=== PATIENT | female | born 1970 | race Asian ===

== ENCOUNTER 2022-01-10 04:26 | Day surgery (SDC) | payer BC ==
[2022-01-04 15:07] VITALS: BMI 26.2
[2022-01-10] MEDS ORDERED: ceFAZolin 2 GRAM PREMIX BAG IVPB ONE (07:00)
[2022-01-10 07:17] VITALS: BP 176/96; PULSE 88; TEMP 97.5
[2022-01-10] MEDS ORDERED: CEFAZOLIN 2 GM in DEXTROSE 5%-WATER 100 ML IVPB ONE (08:00)
[2022-01-10] MEDS ORDERED: LIDOCAINE 1%/EPI 1:100000 (20 ML MULTI DOSE VIAL) IJ ONE (08:10)
[2022-01-10] MEDS ORDERED: VANCOMYCIN 1 GM in D5W (PRE-DOCKED) 1,000 MG/250 ML IVPB ONE (08:11)
[2022-01-10] MEDS ORDERED: ceFAZolin SODIUM 1 GM VIAL IVPB ONE (08:11)
[2022-01-10] MEDS ORDERED: HYDROGEN PEROXIDE 473 ML PO ONE (08:13)
[2022-01-10] MEDS ORDERED: THROMBIN (BOVINE) 5,000 UNIT VIAL TP ONE (08:13)
[2022-01-10] MEDS ORDERED: GENTAMICIN SO4 80 MG/2 ML VIAL IVPB ONE (08:15)
[2022-01-10] MEDS ORDERED: BUPIVACAINE LIPOSOME/PF (EXPAREL) 266 MG/20 ML VIAL NR ONE (08:17)
[2022-01-10] MEDS ORDERED: BUPIVACAINE HCL/PF 0.5% (5MG/ML) 10 ML VIAL IJ ONE (08:18)
== END 2022-01-10 10:35 | disposition home or self-care (01) ==
LOC: JASU-SURG 04:26 → UNDOADMIN 04:26 → J2C 04:26 → JASU-SURG 10:35 → UNDODISIN 10:35 → EDSTATUS 11:00 → JASU-SURG 11:14
PROVIDERS: ATTEND Neurological Surgery
DX: Z53.8 Procedure and treatment not carried out for other reasons (principal)
CPT/HCPCS: 76000-TC-FY; 81025; 82962; 93005; 93010

== ENCOUNTER 2022-01-11 04:08 | Inpatient (IN) | payer BC ==
[2022-01-10 16:40] VITALS: BMI 26.2
[2022-01-11] MEDS ORDERED: LIDOCAINE 1%/EPI 1:100000 (20 ML MULTI DOSE VIAL) ONE ×2 (07:10→09:00)
[2022-01-11] MEDS ORDERED: THROMBIN (BOVINE) 20,000 UNIT VIAL TP ONE ×3 (07:11→11:30)
[2022-01-11] MEDS ORDERED: BUPIVACAINE HCL/PF 0.5% (5MG/ML) 10 ML VIAL ONE (07:12)
[2022-01-11] MEDS ORDERED: GENTAMICIN SO4 80 MG/2 ML VIAL ONE ×2 (07:24→07:47)
[2022-01-11] MEDS ORDERED: ceFAZolin SODIUM 1 GM VIAL IVPB ONE ×2 (07:39→08:40)
[2022-01-11] MEDS ORDERED: LIDOCAINE 1%/EPI 1:100000 (20 ML MULTI DOSE VIAL) IJ ONE ×2 (07:39→08:51)
[2022-01-11] MEDS ORDERED: VANCOMYCIN 1 GM in D5W (PRE-DOCKED) 1,000 MG/250 ML IVPB ONE ×2 (07:39→08:42)
[2022-01-11] MEDS ORDERED: GENTAMICIN SO4 80 MG/2 ML VIAL IVPB ONE ×2 (07:40→10:00)
[2022-01-11] MEDS ORDERED: HYDROGEN PEROXIDE 473 ML PO ONE ×2 (07:41→10:00)
[2022-01-11] MEDS ORDERED: THROMBIN (BOVINE) 5,000 UNIT VIAL TP ONE ×4 (07:41→11:12)
[2022-01-11] MEDS ORDERED: BUPIVACAINE LIPOSOME/PF (EXPAREL) 266 MG/20 ML VIAL NR ONE (07:42)
[2022-01-11] MEDS ORDERED: BUPIVACAINE HCL/PF 0.5% (5MG/ML) 10 ML VIAL IJ ONE (07:42)
[2022-01-11] MEDS ORDERED: BUPIVACAINE LIPOSOME/PF (EXPAREL) 266 MG/20 ML VIAL ONE (08:05)
[2022-01-11] MEDS ORDERED: BACITRACIN 15 GM TUBE TOPICAL OINTMENT ONE (09:00)
[2022-01-11] MEDS ORDERED: ALBUMIN HUMAN 5% 250 ML IV SOLUTION IV ONE ×2 (11:02→11:07)
[2022-01-11] MEDS ORDERED: PROPOFOL 1,000,000 MCG/100 ML VIAL ONE (13:29)
[2022-01-11] MEDS ORDERED: VASOPRESSIN 20 UNITS/ML VIAL IV ONE (13:47)
[2022-01-11] MEDS ORDERED: ONDANSETRON 4 MG/2 ML VIAL IVPUSH PRN (14:11)
[2022-01-11] MEDS ORDERED: MICROFIBRILLAR COLLAGEN (AVITENE) 1 EACH POWD.PACK TP SCH (14:15)
[2022-01-11] MEDS ORDERED: PROPOFOL 1,000,000 MCG/100 ML VIAL IVPB SCH (14:15)
[2022-01-11] MEDS ORDERED: LACTATED RINGERS SOLUTION 1,000 ML IV SCH (14:15)
[2022-01-11] MEDS ORDERED: diphenhydrAMINE HCL 25 MG CAPSULE (FP) PO PRN (14:27)
[2022-01-11] MEDS ORDERED: LACTATED RINGERS SOLUTION 1,000 ML/1,000 ML INFUS.BAG IV SCH (14:30)
[2022-01-11] MEDS ORDERED: CALCIUM GLUCONATE 10% - 1,000 MG/10 ML VIAL IVPB ONE ×2 (14:32→20:52)
[2022-01-11 14:40] LABS: BASO % 0.2 % (0-2.0); EOS % 0.2 % (0-4.5); HEMATOCRIT 38.5 % (32.4-45.2); HEMOGLOBIN 13.1 GM/dL (10.7-15.3); LYMPH % 12.3 % (8-40); MCH 29.9 pg (25.7-33.7); MCHC 33.9 g/dl (32.0-36.0); MEAN CELL VOLUME 88.1 fl (80-96); MEAN PLT VOLUME 7.4 fl (7.5-11.1); MONO % 6.2 % (3.8-10.2); NEUT % 81.1 % (42.8-82.8); PLATELET COUNT 149 10^3/uL (134-434); RBC 4.37 M/mm3 (3.60-5.2); RDW 15.2 % (11.6-15.6); WHITE BLOOD COUNT 10.5 K/mm3 (4.0-10.0)
[2022-01-11 14:50] LABS: ACTIVATED PTT 27.4 SECONDS (25.2-36.5); INR 1.2 (0.83-1.09); PROTHROMBIN TIME (PATIENT) 13.8 SEC (9.7-13.0)
[2022-01-11] MEDS ORDERED: FENTANYL NS IVPB 500 MCG/100 ML BAG IVPB ONE (15:07)
[2022-01-11 15:11] LABS: BLOOD UREA NITROGEN 8.7 mg/dL (7-18)
[2022-01-11 15:14] LABS: CREATININE 0.5 mg/dL (0.55-1.3)
[2022-01-11 15:16] LABS: BILIRUBIN,TOTAL 0.9 mg/dL (0.2-1)
[2022-01-11 15:18] LABS: ALBUMIN 2.6 g/dl (3.4-5.0); CALCIUM 7.2 mg/dL (8.5-10.1); TOT PROT 4.4 g/dl (6.4-8.2)
[2022-01-11] MEDS ORDERED: [UNRECOGNIZED DRUG - OTHER] IVPB ONE (15:20)
[2022-01-11] MEDS ORDERED: NS IVPB ONE (15:20)
[2022-01-11] MEDS ORDERED: NOREPINEPHRINE IVPB ONE (15:20)
[2022-01-11] MEDS ORDERED: PREMIXED IVPB ONE (15:20)
[2022-01-11] MEDS ORDERED: NOREPINEPHRINE NS PREMIX 16,000 MCG/500 ML BAG IVPB SCH (15:30)
[2022-01-11] MEDS ORDERED: SODIUM CHLORIDE 1,000 ML IV STA (16:02)
[2022-01-11] MEDS ORDERED: MIDAZOLAM HCL 2 MG/2 ML SINGLE DOSE VIAL IVPUSH ONE ×2 (16:46→16:56)
[2022-01-11] MEDS ORDERED: MIDAZOLAM HCL 2 MG/2 ML SINGLE DOSE VIAL ONE (16:57)
[2022-01-11] MEDS: HEPARIN NA (PORCINE) 5,000 UNITS/ML 1ML VIAL SQ SCH ×2 (17:16→22:48)
[2022-01-11] MEDS ORDERED: DEXMEDETOMIDINE IN 0.9 % NACL 400 MCG/100 ML VIAL IVPB SCH (18:00)
[2022-01-11] MEDS ORDERED: ceFAZolin SODIUM 1 GM VIAL ONE (18:20)
[2022-01-11] MEDS: SODIUM CHLORIDE 1,000 ML IV SCH (18:21)
[2022-01-11] MEDS ORDERED: DEXTROSE 5%-WATER - 50 ML IVPB ONE (18:21)
[2022-01-11] MEDS: CEFAZOLIN 1 GM in DEXTROSE 5%-WATER - 50 ML IVPB SCH (18:35)
[2022-01-11] MEDS: VASOPRESSIN 40 UNITS/100 ML BAG IV SCH (19:00)
[2022-01-11] MEDS: FENTANYL NS IVPB 500 MCG/100 ML BAG IVPB SCH ×2 (19:00→22:03)
[2022-01-11 22:10] LABS: HEMATOCRIT 37.9 % (32.4-45.2); HEMOGLOBIN 12.8 GM/dL (10.7-15.3); MCH 29.1 pg (25.7-33.7); MCHC 33.7 g/dl (32.0-36.0); MEAN CELL VOLUME 86.3 fl (80-96); MEAN PLT VOLUME 8.1 fl (7.5-11.1); PLATELET COUNT 171 10^3/uL (134-434); RBC 4.39 M/mm3 (3.60-5.2); RDW 14.8 % (11.6-15.6); WHITE BLOOD COUNT 15.4 K/mm3 (4.0-10.0)
[2022-01-11] MEDS: DOCUSATE SODIUM 100 MG CAPSULE (FP) PO SCH (22:48)
[2022-01-12] MEDS ORDERED: ceFAZolin SODIUM 1 GM VIAL ONE ×3 (00:38→14:49)
[2022-01-12] MEDS ORDERED: DEXTROSE 5%-WATER - 50 ML IVPB ONE ×3 (00:38→14:49)
[2022-01-12] MEDS: CEFAZOLIN 1 GM in DEXTROSE 5%-WATER - 50 ML IVPB SCH ×2 (01:00→09:02)
[2022-01-12] MEDS ORDERED: SODIUM CHLORIDE 0.9% 500 ML INFUS.BAG IV ONE (01:27)
[2022-01-12] MEDS: FENTANYL NS IVPB 500 MCG/100 ML BAG IVPB SCH ×2 (03:40→08:04)
[2022-01-12] MEDS: VASOPRESSIN 40 UNITS/100 ML BAG IV SCH ×2 (04:55→15:30)
[2022-01-12] MEDS: HEPARIN NA (PORCINE) 5,000 UNITS/ML 1ML VIAL SQ SCH ×2 (05:07→14:36)
[2022-01-12] MEDS: DOCUSATE SODIUM 100 MG CAPSULE (FP) PO SCH ×3 (05:07→21:51)
[2022-01-12 07:22] LABS: HEMATOCRIT 30.3 % (32.4-45.2); HEMOGLOBIN 10.6 GM/dL (10.7-15.3); MCH 29.8 pg (25.7-33.7); MCHC 34.9 g/dl (32.0-36.0); MEAN CELL VOLUME 85.3 fl (80-96); MEAN PLT VOLUME 7.7 fl (7.5-11.1); PLATELET COUNT 117 10^3/uL (134-434); RBC 3.55 M/mm3 (3.60-5.2); RDW 14.8 % (11.6-15.6); WHITE BLOOD COUNT 10.8 K/mm3 (4.0-10.0)
[2022-01-12 07:36] LABS: BLOOD UREA NITROGEN 11.2 mg/dL (7-18)
[2022-01-12 07:39] LABS: CREATININE 0.5 mg/dL (0.55-1.3)
[2022-01-12 08:58] LABS: CALCIUM 7.4 mg/dL (8.5-10.1)
[2022-01-12] MEDS ORDERED: PROPOFOL 1,000,000 MCG/100 ML VIAL IVPB SCH (09:30)
[2022-01-12] MEDS ORDERED: FOLIC ACID 1 MG TABLET (FP) PO SCH (10:00)
[2022-01-12] MEDS ORDERED: FERROUS SO4 325 MG TABLET (FP) PO SCH (10:00)
[2022-01-12] MEDS ORDERED: ONDANSETRON 4 MG/2 ML VIAL IVPUSH ONE (15:00)
[2022-01-12] MEDS: PHENOL 177 ML SPRAY BOTTLE MM PRN (16:12)
[2022-01-12] MEDS: SODIUM CHLORIDE 1,000 ML IV SCH (19:28)
[2022-01-12] MEDS ORDERED: ACETAMINOPHEN 1000 MG/100 ML BAG IVPB ONE (21:38)
[2022-01-12 23:50] LABS: EPI CELLS >36 /uL (0-25.1); HYALINE CASTS 5 /uL (0-3.1); PH,URINE 5.5 (5.0-8.0); URINE APPEARANCE CLEAR; URINE BACTERIA 12 /uL (0-1359); URINE BILIRUBIN NEGATIVE (NEGATIVE); URINE COLOR YELLOW; URINE GLUCOSE (UA) 3+ (NEGATIVE); URINE KETONE 4+ (NEGATIVE); URINE LEUK ESTERASE NEGATIVE (NEGATIVE); URINE NITRITE NEGATIVE (NEGATIVE); URINE PROTEIN TRACE (NEGATIVE); URINE RBC 37 /uL (0-23.9); URINE UROBILINOGEN 0.2 mg/dL (0.2-1.0)
[2022-01-13] MEDS: SODIUM CHLORIDE 1,000 ML IV SCH ×2 (03:34→21:19)
[2022-01-13] MEDS: DOCUSATE SODIUM 100 MG CAPSULE (FP) PO SCH ×3 (05:18→21:17)
[2022-01-13] MEDS: PHENOL 177 ML SPRAY BOTTLE MM PRN (05:19)
[2022-01-13] MEDS ORDERED: THROMBIN (BOVINE) 20,000 UNIT VIAL TP ONE ×2 (07:20→10:03)
[2022-01-13] MEDS ORDERED: GENTAMICIN SO4 80 MG/2 ML VIAL ONE (07:20)
[2022-01-13] MEDS ORDERED: LIDOCAINE 1%/EPI 1:100000 (20 ML MULTI DOSE VIAL) ONE (07:20)
[2022-01-13] MEDS ORDERED: LIDOCAINE 1%/EPI 1:100000 (20 ML MULTI DOSE VIAL) IJ ONE ×2 (07:37→09:35)
[2022-01-13] MEDS ORDERED: VANCOMYCIN 1 GM in D5W (PRE-DOCKED) 1,000 MG/250 ML IVPB ONE ×2 (07:38→08:42)
[2022-01-13] MEDS ORDERED: ceFAZolin SODIUM 1 GM VIAL IVPB ONE ×2 (07:38→08:40)
[2022-01-13] MEDS ORDERED: HYDROGEN PEROXIDE 473 ML PO ONE ×2 (07:39→10:29)
[2022-01-13] MEDS ORDERED: GENTAMICIN SO4 80 MG/2 ML VIAL IVPB ONE ×2 (07:39→10:29)
[2022-01-13] MEDS ORDERED: BUPIVACAINE LIPOSOME/PF (EXPAREL) 266 MG/20 ML VIAL ONE (07:40)
[2022-01-13] MEDS ORDERED: BUPIVACAINE LIPOSOME/PF (EXPAREL) 266 MG/20 ML VIAL NR ONE ×2 (07:41→11:25)
[2022-01-13] MEDS ORDERED: BUPIVACAINE HCL/PF 0.5% (5MG/ML) 10 ML VIAL IJ ONE ×2 (07:42→11:25)
[2022-01-13 07:45] LABS: BASO % 0.3 % (0-2.0); EOS % 0.1 % (0-4.5); HEMATOCRIT 24.1 % (32.4-45.2); HEMOGLOBIN 8.2 GM/dL (10.7-15.3); LYMPH % 17.3 % (8-40); MCH 29.5 pg (25.7-33.7); MCHC 34.2 g/dl (32.0-36.0); MEAN CELL VOLUME 86.3 fl (80-96); MEAN PLT VOLUME 7.7 fl (7.5-11.1); MONO % 8.7 % (3.8-10.2); NEUT % 73.6 % (42.8-82.8); PLATELET COUNT 115 10^3/uL (134-434); RBC 2.79 M/mm3 (3.60-5.2); RDW 14.9 % (11.6-15.6); WHITE BLOOD COUNT 11.6 K/mm3 (4.0-10.0)
[2022-01-13 08:12] LABS: BLOOD UREA NITROGEN 7.2 mg/dL (7-18); CALCIUM 7.7 mg/dL (8.5-10.1)
[2022-01-13 08:15] LABS: CREATININE 0.4 mg/dL (0.55-1.3)
[2022-01-13] MEDS ORDERED: FENTANYL CITRATE/PF 50 MCG/ML VIAL ONE ×6 (08:16→13:28)
[2022-01-13] MEDS ORDERED: PROPOFOL 20 ML ONE (08:16)
[2022-01-13] MEDS ORDERED: MIDAZOLAM HCL 2 MG/2 ML SINGLE DOSE VIAL ONE ×2 (08:17)
[2022-01-13] MEDS ORDERED: DEXMEDETOMIDINE HCL 200 MCG/2 ML IVPB ONE (08:26)
[2022-01-13] MEDS ORDERED: ROCURONIUM BROMIDE 50 MG/5 ML SYRINGE ONE ×2 (09:26→10:32)
[2022-01-13] MEDS ORDERED: HYDROmorphone HCl 2 MG/ML VIAL ONE (09:42)
[2022-01-13] MEDS ORDERED: KETAMINE HCL 200 MG/20 ML VIAL ONE (10:00)
[2022-01-13 10:48] LABS: ACTIVATED PTT 23.7 SECONDS (25.2-36.5); INR 1.09 (0.83-1.09); PROTHROMBIN TIME (PATIENT) 12.6 SEC (9.7-13.0)
[2022-01-13] MEDS ORDERED: NEOSTIGMINE METHYLSULFATE 0.5 MG/1 ML - 10 ML MDV ONE (11:23)
[2022-01-13] MEDS ORDERED: ONDANSETRON 4 MG/2 ML VIAL IVPUSH PRN ×2 (12:26→12:27)
[2022-01-13] MEDS ORDERED: diphenhydrAMINE HCL 25 MG CAPSULE (FP) PO PRN (12:27)
[2022-01-13] MEDS ORDERED: LABETALOL HCL 5 MG/1 ML (100MG/20 ML VIAL) IVPUSH PRN (12:27)
[2022-01-13] MEDS ORDERED: oxyCODONE HCL 5 MG TABLET PO PRN (12:27)
[2022-01-13] MEDS ORDERED: LACTATED RINGERS SOLUTION 1,000 ML IV SCH (12:30)
[2022-01-13] MEDS ORDERED: LABETALOL HCL 5 MG/1 ML (100MG/20 ML VIAL) IVPUSH ONE ×2 (12:58→14:00)
[2022-01-13] MEDS ORDERED: MICROFIBRILLAR COLLAGEN (AVITENE) 1 EACH POWD.PACK TP ONE (14:15)
[2022-01-13] MEDS: HEPARIN NA (PORCINE) 5,000 UNITS/ML 1ML VIAL SQ SCH ×2 (16:33→21:17)
[2022-01-13] MEDS: INSULIN (LEVEMIR) 100 UNITS/ML UNITS SQ SCH ×2 (16:35→21:17)
[2022-01-13] MEDS: INSULIN SLIDING SCALE (NOVOLOG) 1 VIAL SQ SCH ×3 (16:37→21:17)
[2022-01-13] MEDS ORDERED: ceFAZolin SODIUM 1 GM VIAL ONE (17:46)
[2022-01-13] MEDS: CEFAZOLIN 1 GM in DEXTROSE 5%-WATER - 1 GM/50 ML IVPB IVPB SCH (18:13)
[2022-01-13] MEDS: morphine SULFATE 4 MG/ML VIAL IVPUSH PRN (21:17)
[2022-01-13] MEDS: LACTATED RINGERS SOLUTION 1,000 ML/1,000 ML INFUS.BAG IV SCH (21:19)
[2022-01-14] MEDS ORDERED: ceFAZolin SODIUM 1 GM VIAL ONE ×2 (01:13→10:41)
[2022-01-14] MEDS ORDERED: DEXTROSE 5%-WATER - 50 ML IVPB ONE ×2 (01:13→10:42)
[2022-01-14] MEDS: morphine SULFATE 4 MG/ML VIAL IVPUSH PRN (01:39)
[2022-01-14] MEDS: CEFAZOLIN 1 GM in DEXTROSE 5%-WATER - 1 GM/50 ML IVPB IVPB SCH ×2 (01:40→10:43)
[2022-01-14] MEDS: DOCUSATE SODIUM 100 MG CAPSULE (FP) PO SCH ×3 (06:01→21:24)
[2022-01-14] MEDS: HEPARIN NA (PORCINE) 5,000 UNITS/ML 1ML VIAL SQ SCH ×3 (06:01→21:24)
[2022-01-14] MEDS: INSULIN SLIDING SCALE (NOVOLOG) 1 VIAL SQ SCH ×3 (06:01→21:34)
[2022-01-14] MEDS: INSULIN (LEVEMIR) 100 UNITS/ML UNITS SQ SCH ×2 (06:01→21:33)
[2022-01-14 08:55] LABS: HEMATOCRIT 32.9 % (32.4-45.2); HEMOGLOBIN 11.2 GM/dL (10.7-15.3); MCH 28.6 pg (25.7-33.7); MEAN CELL VOLUME 84.1 fl (80-96); MEAN PLT VOLUME 7.8 fl (7.5-11.1); PLATELET COUNT 104 10^3/uL (134-434); RBC 3.91 M/mm3 (3.60-5.2); RDW 16.3 % (11.6-15.6); WHITE BLOOD COUNT 13.1 K/mm3 (4.0-10.0)
[2022-01-14 09:19] LABS: CALCIUM 7.8 mg/dL (8.5-10.1); CHLORIDE 105 mmol/L (98-107); SODIUM 140 mmol/L (136-145)
[2022-01-14 09:20] LABS: BLOOD UREA NITROGEN 3.5 mg/dL (7-18); CO2 20 mmol/L (21-32); GLUCOSE,RANDOM 153 mg/dL (74-106)
[2022-01-14 09:23] LABS: CREATININE 0.4 mg/dL (0.55-1.3)
[2022-01-14 09:32] LABS: ANION GAP 14 MMOL/L (8-16)
[2022-01-14] MEDS: FERROUS SO4 325 MG TABLET (FP) PO SCH ×2 (10:46→10:47)
[2022-01-14] MEDS: FOLIC ACID 1 MG TABLET (FP) PO SCH (10:46)
[2022-01-14] MEDS: KCL 10 MEQ IVPB 10 MEQ/100 ML INFUS.BAG IVPB SCH ×3 (11:10→13:24)
[2022-01-14] MEDS: ACETAMINOPHEN 1000 MG/100 ML BAG IVPB PRN ×2 (14:48→22:53)
[2022-01-14] MEDS: SODIUM CHLORIDE 1,000 ML IV SCH (21:34)
[2022-01-15] MEDS: INSULIN SLIDING SCALE (NOVOLOG) 1 VIAL SQ SCH ×4 (06:15→21:37)
[2022-01-15] MEDS: DOCUSATE SODIUM 100 MG CAPSULE (FP) PO SCH ×3 (06:16→21:34)
[2022-01-15] MEDS: INSULIN (LEVEMIR) 100 UNITS/ML UNITS SQ SCH ×2 (06:16→21:37)
[2022-01-15] MEDS: HEPARIN NA (PORCINE) 5,000 UNITS/ML 1ML VIAL SQ SCH ×3 (06:16→21:34)
[2022-01-15 08:34] LABS: BASO % 0.3 % (0-2.0); EOS % 0.1 % (0-4.5); HEMATOCRIT 33.4 % (32.4-45.2); HEMOGLOBIN 11.7 GM/dL (10.7-15.3); LYMPH % 10.7 % (8-40); MCH 29.2 pg (25.7-33.7); MCHC 34.9 g/dl (32.0-36.0); MEAN CELL VOLUME 83.7 fl (80-96); MEAN PLT VOLUME 7.7 fl (7.5-11.1); MONO % 6.7 % (3.8-10.2); NEUT % 82.2 % (42.8-82.8); PLATELET COUNT 153 10^3/uL (134-434); RDW 16.2 % (11.6-15.6)
[2022-01-15 08:57] LABS: CHLORIDE 107 mmol/L (98-107); SODIUM 139 mmol/L (136-145)
[2022-01-15 09:04] LABS: ALBUMIN 2.8 g/dl (3.4-5.0); BLOOD UREA NITROGEN 5.6 mg/dL (7-18); CO2 16 mmol/L (21-32); CREATININE 0.4 mg/dL (0.55-1.3); GLUCOSE,RANDOM 167 mg/dL (74-106); SGOT/AST 26 U/L (15-37)
[2022-01-15 09:06] LABS: BILIRUBIN,TOTAL 0.7 mg/dL (0.2-1); TOT PROT 6.2 g/dl (6.4-8.2)
[2022-01-15 09:07] LABS: ALK PHOS 93 U/L (45-117); ANION GAP 16 MMOL/L (8-16); CALCIUM 8.2 mg/dL (8.5-10.1); MAGNESIUM 2.3 mg/dL (1.8-2.4); SGPT/ALT 33 U/L (13-61)
[2022-01-15] MEDS: KCL 10 MEQ IVPB 10 MEQ/100 ML INFUS.BAG IVPB SCH ×3 (09:27→11:00)
[2022-01-15] MEDS ORDERED: POTASSIUM CHLORIDE ORAL LIQUID 20 MEQ/15 ML PO ONE ×2 (10:49→16:56)
[2022-01-15] MEDS: FERROUS SO4 325 MG TABLET (FP) PO SCH (10:59)
[2022-01-15] MEDS: FOLIC ACID 1 MG TABLET (FP) PO SCH (11:03)
[2022-01-15] MEDS ORDERED: LORazepam 2 MG TABLET PO PRN (12:07)
[2022-01-15] MEDS ORDERED: amLODIPine BESYLATE 2.5 MG TABLET (FP) PO SCH (12:15)
[2022-01-15] MEDS ORDERED: LORazepam 0.5 MG TABLET PO PRN (12:24)
[2022-01-15] MEDS: LACTATED RINGERS SOLUTION 1,000 ML/1,000 ML INFUS.BAG IV SCH (20:48)
[2022-01-15] MEDS: SODIUM CHLORIDE 1,000 ML IV SCH (20:48)
[2022-01-15] MEDS: POLYETHYLENE GLYCOL (HEALTHYLAX) 3350 17 GM PACKET PO SCH (21:34)
[2022-01-15] MEDS: POTASSIUM CHLORIDE ORAL LIQUID 20 MEQ/15 ML PO SCH (21:34)
[2022-01-15] MEDS: metoPROLOL SUCCINATE 25 MG TAB.SR.24H (FP) PO SCH (21:35)
[2022-01-15] MEDS: morphine SULFATE 4 MG/ML VIAL IVPUSH PRN (21:44)
[2022-01-16] MEDS ORDERED: POTASSIUM CHLORIDE ORAL LIQUID 20 MEQ/15 ML PO ONE (01:26)
[2022-01-16] MEDS: morphine SULFATE 4 MG/ML VIAL IVPUSH PRN (02:31)
[2022-01-16] MEDS: INSULIN SLIDING SCALE (NOVOLOG) 1 VIAL SQ SCH ×4 (06:17→21:18)
[2022-01-16] MEDS: HEPARIN NA (PORCINE) 5,000 UNITS/ML 1ML VIAL SQ SCH ×3 (06:17→21:18)
[2022-01-16] MEDS: INSULIN (LEVEMIR) 100 UNITS/ML UNITS SQ SCH ×2 (06:18→21:19)
[2022-01-16] MEDS: DOCUSATE SODIUM 100 MG CAPSULE (FP) PO SCH ×3 (06:18→21:18)
[2022-01-16 07:34] LABS: BASO % 0.3 % (0-2.0); HEMATOCRIT 32.3 % (32.4-45.2); HEMOGLOBIN 11.7 GM/dL (10.7-15.3); LYMPH % 12.6 % (8-40); MCH 30.3 pg (25.7-33.7); MCHC 36.4 g/dl (32.0-36.0); MEAN CELL VOLUME 83.3 fl (80-96); MEAN PLT VOLUME 7.3 fl (7.5-11.1); MONO % 8.3 % (3.8-10.2); NEUT % 78.8 % (42.8-82.8); PLATELET COUNT 189 10^3/uL (134-434); RBC 3.87 M/mm3 (3.60-5.2); RDW 16.3 % (11.6-15.6)
[2022-01-16 08:01] LABS: CALCIUM 8.4 mg/dL (8.5-10.1)
[2022-01-16 08:02] LABS: ALBUMIN 2.6 g/dl (3.4-5.0); BLOOD UREA NITROGEN 8.3 mg/dL (7-18); MAGNESIUM 2.4 mg/dL (1.8-2.4)
[2022-01-16 08:05] LABS: CREATININE 0.4 mg/dL (0.55-1.3)
[2022-01-16 08:07] LABS: BILIRUBIN,TOTAL 0.5 mg/dL (0.2-1); TOT PROT 5.8 g/dl (6.4-8.2)
[2022-01-16] MEDS: oxyCODONE HCL 5 MG TABLET PO PRN ×2 (09:59→14:43)
[2022-01-16] MEDS: FERROUS SO4 325 MG TABLET (FP) PO SCH (10:06)
[2022-01-16] MEDS: metoPROLOL SUCCINATE 25 MG TAB.SR.24H (FP) PO SCH ×2 (10:07→21:19)
[2022-01-16] MEDS: FOLIC ACID 1 MG TABLET (FP) PO SCH (10:08)
[2022-01-16] MEDS: POTASSIUM CHLORIDE ORAL LIQUID 20 MEQ/15 ML PO SCH ×2 (10:08→21:19)
[2022-01-16] MEDS: POLYETHYLENE GLYCOL (HEALTHYLAX) 3350 17 GM PACKET PO SCH ×2 (10:09→21:19)
[2022-01-16] MEDS: LACTATED RINGERS SOLUTION 1,000 ML/1,000 ML INFUS.BAG IV SCH (17:33)
[2022-01-16] MEDS: SODIUM CHLORIDE 1,000 ML IV SCH (20:04)
[2022-01-17] MEDS: DOCUSATE SODIUM 100 MG CAPSULE (FP) PO SCH (06:47)
[2022-01-17] MEDS: INSULIN (LEVEMIR) 100 UNITS/ML UNITS SQ SCH (06:47)
[2022-01-17] MEDS: HEPARIN NA (PORCINE) 5,000 UNITS/ML 1ML VIAL SQ SCH (06:47)
[2022-01-17] MEDS: oxyCODONE HCL 5 MG TABLET PO PRN ×2 (06:47→12:15)
[2022-01-17] MEDS: INSULIN SLIDING SCALE (NOVOLOG) 1 VIAL SQ SCH ×3 (06:48→11:55)
[2022-01-17 08:21] LABS: HEMATOCRIT 32.7 % (32.4-45.2); HEMOGLOBIN 11.5 GM/dL (10.7-15.3); MCH 29.4 pg (25.7-33.7); MCHC 35.1 g/dl (32.0-36.0); MEAN CELL VOLUME 83.7 fl (80-96); MEAN PLT VOLUME 7.7 fl (7.5-11.1); PLATELET COUNT 253 10^3/uL (134-434); RBC 3.91 M/mm3 (3.60-5.2); RDW 16.1 % (11.6-15.6); WHITE BLOOD COUNT 9.1 K/mm3 (4.0-10.0)
[2022-01-17 08:22] LABS: CALCIUM 8.2 mg/dL (8.5-10.1)
[2022-01-17 08:23] LABS: ALBUMIN 2.5 g/dl (3.4-5.0); BLOOD UREA NITROGEN 8.8 mg/dL (7-18); MAGNESIUM 2.5 mg/dL (1.8-2.4)
[2022-01-17 08:26] LABS: CREATININE 0.3 mg/dL (0.55-1.3)
[2022-01-17 08:27] LABS: BILIRUBIN,TOTAL 1.1 mg/dL (0.2-1)
[2022-01-17 08:28] LABS: TOT PROT 5.8 g/dl (6.4-8.2)
[2022-01-17] MEDS: VASOPRESSIN 40 UNITS/100 ML BAG IV SCH (08:45)
[2022-01-17] MEDS: LACTATED RINGERS SOLUTION 1,000 ML/1,000 ML INFUS.BAG IV SCH (08:46)
[2022-01-17] MEDS: metoPROLOL SUCCINATE 25 MG TAB.SR.24H (FP) PO SCH (11:00)
[2022-01-17] MEDS: POTASSIUM CHLORIDE ORAL LIQUID 20 MEQ/15 ML PO SCH (11:01)
[2022-01-17] MEDS: FOLIC ACID 1 MG TABLET (FP) PO SCH (11:01)
[2022-01-17] MEDS: FERROUS SO4 325 MG TABLET (FP) PO SCH (11:01)
[2022-01-17] MEDS: POLYETHYLENE GLYCOL (HEALTHYLAX) 3350 17 GM PACKET PO SCH (11:01)
[2022-01-17] MEDS ORDERED: POTASSIUM CHLORIDE ORAL LIQUID 20 MEQ/15 ML PO ONE (11:46)
[2022-01-17 11:52] LABS: ANISOCYTOSIS 2+; MACROCYTOSIS 0; OVALOCYTE 1+; TEAR DROP CELLS 1+
[2022-01-17 13:07] VITALS: TEMP 98.6
[2022-01-17 13:08] VITALS: BP 130/88; PULSE 115
== END 2022-01-17 13:25 | disposition home or self-care (01) | DRG 453 ==
LOC: J2C 04:08 → JICU 15:31 → J8W 01-13 14:45
PROVIDERS: ADMIT Neurological Surgery; ATTEND Nurse Practitioner Family
PROC: 00NW0ZZ Release Cervical Spinal Cord, Open Approach (ICD-10-PCS; 2022-01-11)
PROC: 4A11X4G Monitoring of Peripheral Nervous Electrical Activity, Intraoperative, External Approach (ICD-10-PCS; 2022-01-11)
PROC: 30233K1 Transfusion of Nonautologous Frozen Plasma into Peripheral Vein, Percutaneous Approach (ICD-10-PCS; 2022-01-11)
PROC: 30233N1 Transfusion of Nonautologous Red Blood Cells into Peripheral Vein, Percutaneous Approach (ICD-10-PCS; 2022-01-11)
PROC: 30233R1 Transfusion of Nonautologous Platelets into Peripheral Vein, Percutaneous Approach (ICD-10-PCS; 2022-01-11)
PROC: 0RG20A0 Fusion of 2 or more Cervical Vertebral Joints with Interbody Fusion Device, Anterior Approach, Anterior Column, Open Approach (ICD-10-PCS; principal; 2022-01-11 08:00)
PROC: 0RG2071 Fusion of 2 or more Cervical Vertebral Joints with Autologous Tissue Substitute, Posterior Approach, Posterior Column, Open Approach (ICD-10-PCS; 2022-01-13)
DX: M47.12 Other spondylosis with myelopathy, cervical region (principal); T81.19XA Other postprocedural shock, initial encounter; D62 Acute posthemorrhagic anemia; M40.292 Other kyphosis, cervical region; D69.6 Thrombocytopenia, unspecified; E11.9 Type 2 diabetes mellitus without complications; I95.89 Other hypotension; I10 Essential (primary) hypertension; Y83.8 Other surgical procedures as the cause of abnormal reaction of the patient, or of later complication, without mention of misadventure at the time of the procedure
CPT/HCPCS: 36415; 36430; 36511; 71045-TC-FY; 72125-TC; 80048; 80053; 81003; 82962; 83036; 83735; 84132; 84484; 85025; 85027; 85384; 85610; 85730; 86850; 86870; 86900; 86901; 86902; 86922; 87040; 87086; 93005; 93010; 94002; 94760; 97116-GP; 97162-GP; J1644; J3490; P9016; P9017; P9034; P9058